=== PATIENT | female | born 1975 | race Caucasian/White ===

== ENCOUNTER 2021-05-23 13:33 | Emergency (ER) | payer MEDICAID ==
[~2021-05-23 13:33] MED LIST: ACETAMINOPHEN500 M1 PO; ADVIL MIGRAINE200 MG PO; COLACE100 MG PO; NEXIUM 24HR20 MG PO; NORCO 5-325 TA1 EACH PO; ONDANSETRON ODT4 MG PO; OXY-IR 5MG5 MG PO; PEPCID AC20 MG PO; VENTOLIN (2.5 MG/3 M INH; VENTOLIN HFA IN18 GM INH
== END 2021-05-23 16:49 | disposition home or self-care (01) ==
LOC: FER 13:33
DX: U07.1 COVID-19 (principal); J12.82 Pneumonia due to coronavirus disease 2019; J45.909 Unspecified asthma, uncomplicated
CPT/HCPCS: 71045; U0002

== ENCOUNTER 2021-08-03 13:00 | Emergency (ER) | payer SELFPAY ==
[2021-08-03 15:43] LABS: BASOPHIL 0.6 % (0-2); EOSINOPHIL 2.2 % (0-5); HCT 40.5 % (37.0-47.0); HGB 13.2 g/dl (12.5-16.0); LYMPHOCYTE 27.9 % (15-48); MCHC 32.6 g/dL (32.0-36.0); MPV 9.7 fL (6.0-9.5); NEUTROPHIL 60.9 % (41-80); NRBC 0; PLT 270 K/uL (150-400); RBC 4.55 M/uL (4.20-5.40); WBC 8.7 K/uL (4.0-10.5)
[2021-08-03 15:55] LABS: ALBUMIN 3.2 g/dL (3.4-5.0); BILIRUBIN - TOTAL 0.2 mg/dL (0.2-1.0); BUN/CREAT RATIO (CALC) 24.6 RATIO; CREATININE 0.65 mg/dL (0.51-0.95); GLOBULIN (CALCULATION) 4.2 g/dL; POTASSIUM 4.2 mmol/L (3.5-5.1); TOTAL PROTEIN 7.4 g/dL (6.4-8.2)
[2021-08-03 17:03] LABS: CORONAVIRUS 2019 SARS-COV-2 NEGATIVE (NEGATIVE); INFLUENZA A NAA NEGATIVE (NEGATIVE)
[2021-08-03] MEDS ORDERED: PEPCID40 MG PO (17:08)
== END 2021-08-03 17:48 | disposition home or self-care (01) ==
LOC: FER 13:00
PROVIDERS: Internal Medicine
DX: K21.9 Gastro-esophageal reflux disease without esophagitis (principal); R07.89 Other chest pain; J44.9 Chronic obstructive pulmonary disease, unspecified; Z87.891 Personal history of nicotine dependence; Z20.822 Contact with and (suspected) exposure to COVID-19
CPT/HCPCS: 36415; 71045; 80053; 84145; 84484; 85025; 93005; U0002

== ENCOUNTER 2021-11-14 02:21 | Emergency (ER) | payer OTHER ==
[~2021-11-14 02:21] MED LIST changes: +PEPCID40 MG PO
[2021-11-14 03:27] LABS: BASOPHIL 0.5 % (0-2); EOSINOPHIL 2.3 % (0-5); HCT 39.6 % (37.0-47.0); HGB 12.8 g/dl (12.5-16.0); LYMPHOCYTE 29.8 % (15-48); MCH 29.4 pg (25.0-31.0); MCHC 32.3 g/dL (32.0-36.0); MCV 90.8 fL (78.0-100.0); MONOCYTE 5.1 % (0-12); MPV 9.6 fL (6.0-9.5); NEUTROPHIL 61.5 % (41-80); NRBC 0; PLT 245 K/uL (150-400); RBC 4.36 M/uL (4.20-5.40); RDW 13.2 % (11.5-14.0); WBC 9.6 K/uL (4.0-10.5)
[2021-11-14 03:52] LABS: BILIRUBIN NEGATIVE (NEGATIVE); BLOOD NEGATIVE Ery/uL (NEGATIVE); CLARITY CLEAR (CLEAR); COLOR YELLOW (YELLOW); GLUCOSE (U) NORMAL (NORMAL); LEUKOCYTES NEGATIVE Leu/uL (NEGATIVE); NITRITE NEGATIVE (NEGATIVE); PROTEIN NEGATIVE (NEGATIVE); SPECIFIC GRAVITY 1.025 (1.001-1.030); UROBILINOGEN 0.2 mg/dL (0.2-1.0)
[2021-11-14 03:55] LABS: ALBUMIN 3.4 g/dL (3.4-5.0); BILIRUBIN - TOTAL 0.2 mg/dL (0.2-1.0); BUN/CREAT RATIO (CALC) 27.4 RATIO; CREATININE 0.73 mg/dL (0.51-0.95); GLOBULIN (CALCULATION) 3.8 g/dL; POTASSIUM 3.9 mmol/L (3.5-5.1); TOTAL PROTEIN 7.2 g/dL (6.4-8.2)
[2021-11-14] MEDS ORDERED: NORVASC5 MG PO (04:26)
== END 2021-11-14 04:40 | disposition home or self-care (01) ==
LOC: FER 02:21
PROVIDERS: Internal Medicine
DX: I16.0 Hypertensive urgency (principal); R10.12 Left upper quadrant pain; I10 Essential (primary) hypertension; J45.909 Unspecified asthma, uncomplicated
CPT/HCPCS: 36415; 70450; 80053; 81003; 83690; 84443; 84484; 85025; 93005

== ENCOUNTER 2021-11-27 22:15 | Emergency (ER) | payer OTHER ==
[~2021-11-27 22:15] MED LIST changes: +NORVASC5 MG PO
== END 2021-11-28 02:10 | disposition home or self-care (01) ==
LOC: FER 22:15
DX: I10 Essential (primary) hypertension (principal); J45.909 Unspecified asthma, uncomplicated
CPT/HCPCS: 36415; 84484; 93005

== ENCOUNTER 2022-05-23 04:56 | Emergency (ER) | payer SELFPAY ==
[2022-05-23 05:50] LABS: BASOPHIL 0.5 % (0-2); EOSINOPHIL 3.2 % (0-5); HCT 39.4 % (37.0-47.0); HGB 12.7 g/dl (12.5-16.0); MCHC 32.2 g/dL (32.0-36.0); MONOCYTE 8.3 % (0-12); MPV 9.7 fL (6.0-9.5); NEUTROPHIL 51.6 % (41-80); NRBC 0; PLT 237 K/uL (150-400); RBC 4.38 M/uL (4.20-5.40); RDW 13.1 % (11.5-14.0); WBC 7.6 K/uL (4.0-10.5)
[2022-05-23 06:03] LABS: D-DIMER < 0.27 ug/mLFEU (0.00-0.41)
[2022-05-23 06:08] LABS: INR 0.93 (0.9-1.2); PROTHROMBIN TIME 12.2 SECONDS (11.9-13.9)
[2022-05-23 06:10] LABS: CORONAVIRUS 2019 SARS-COV-2 NEGATIVE (NEGATIVE); INFLUENZA A NAA NEGATIVE (NEGATIVE)
[2022-05-23 06:12] LABS: ALBUMIN 3.2 g/dL (3.4-5.0); BILIRUBIN - TOTAL 0.2 mg/dL (0.2-1.0); BUN/CREAT RATIO (CALC) 19.4 RATIO; CREATININE 0.62 mg/dL (0.51-0.95); GLOBULIN (CALCULATION) 3.4 g/dL; POTASSIUM 3.6 mmol/L (3.5-5.1); TOTAL PROTEIN 6.6 g/dL (6.4-8.2)
== END 2022-05-23 08:57 | disposition home or self-care (01) ==
LOC: FER 04:56
PROVIDERS: Emergency Medicine
DX: J45.909 Unspecified asthma, uncomplicated (principal); F41.9 Anxiety disorder, unspecified; Z20.822 Contact with and (suspected) exposure to COVID-19; Z28.310 Unvaccinated for COVID-19
CPT/HCPCS: 36415; 36600; 71045; 80053; 82803; 84484; 85025; 85379; 85610; 85730; 93005; 94640; 94664; 96372; J2060; U0002